=== PATIENT | female | born 1975 | race African-American/Black ===

== ENCOUNTER → 2017-06-13 | Outpatient (CLI) | payer OTHER ==
[~2017-06-13] MED LIST: ALAV10TA PO; ALBU1AER INH; METF1000 PO; PAXI10TA PO; SYMB160A INH; ZIPR20 PO
--- NOTE | 2017-06-13 11:47 | EKG ---
Date Performed: 06/13/2017 Time Performed: 11:29:28 PTAGE: 42 years EKG: SINUS TACHYCARDIA LOW QRS VOLTAGE IN PRECORDIAL LEADS POSSIBLE RIGHT VENTRICULAR CONDUCTION DELAY ABNORMAL RHYTHM ECG PREVIOUS TRACING : 04/12/2013 11.03 Compared to prior tracing no significant change DOCTOR: Julio Carpenter Interpretating Date/Time 06/13/2017 11:47:11
== END ==
LOC: HCAV 11:20
DX: F90.2 Attention-deficit hyperactivity disorder, combined type (principal); R94.31 Abnormal electrocardiogram [ECG] [EKG]
CPT/HCPCS: 93005